=== PATIENT | female | born 1965 | race Hispanic/Latino ===

== ENCOUNTER → 2025-04-08 | Outpatient (CLI) | payer OTHER ==
[2025-04-08 12:15] LABS: HEMATOCRIT(ML) 41.9 % (36.0-46.0); MEAN CORP HGB 30.4 pg (26-34); MEAN CORP HGB CONCENTRATION 32.5 g/dL (33-36.5); MEAN CORP VOLUME 93.7 fL (78-100); RED BLOOD CELL 4.47 10^6/uL (4.00-5.20); RED CELL DISTRIBUTION WIDTH 14.2 % (11.5-14.5); WHITE BLOOD CELL 9.0 10^3/uL (4.5-11.0)
[2025-04-08 12:55] LABS: ALANINE AMINOTRANSFERASE(ML) 30 U/L (12-78); ALBUMIN(ML) 4.1 g/dL (3.4-5.0); CREATININE SERUM 0.69 mg/dL (0.59-1.40); EST GFR, NON-AA 86.5 (>/=60)
== END | disposition home or self-care (01) ==
LOC: LAB 11:48
PROVIDERS: ATTEND Student in an Organized Health Care Education/Training Program
DX: E03.9 Hypothyroidism, unspecified (principal)
CPT/HCPCS: 36415; 80053; 82306; 84439; 84443; 84480; 85027